=== PATIENT | female | born 1990 | race Caucasian/White ===

== ENCOUNTER 2025-06-29 04:30 | Inpatient (IN) ==
[2025-06-29 04:53] VITALS: BMI 28.3
[2025-06-29] MEDS ORDERED: AMPICILLIN VIAL 2 GRAM 2 G in NS 100 ML IV + SPIKE MINIBAG* 100 ML IV SCH (05:00)
[2025-06-29 05:03] LABS: MEAN PLATELET VOLUME 9.2 fL (7.4-11.0); RED CELL DISTRIBUTION WIDTH 18.6 % (11.6-16.5)
[2025-06-29 05:08] LABS: CREATININE 0.91 mg/dL (0.55-1.02); eGFR NON BLACK RACES > 60 (>60)
[2025-06-29] MEDS: AMPICILLIN VIAL 2 GRAM ONE (05:11)
[2025-06-29] MEDS: NS 100 ML IV 100 ML ONE (05:12)
[2025-06-29] MEDS: LR 1,000 ML IV 1,000 ML IV ONE (05:12)
[2025-06-29] MEDS ORDERED: NUBAIN INJ 10 MG AMP IVP PRN (05:14)
[2025-06-29] MEDS ORDERED: ZOFRAN INJ 4 MG VIAL IVP PRN (05:14)
[2025-06-29] MEDS ORDERED: REGLAN INJ 10 MG VIAL IVP PRN (05:14)
[2025-06-29] MEDS ORDERED: OXYTOCIN 20 UNIT/1,000 ML-NS 20 UNIT/1,000 ML PLAST..BAG IV PRN (05:14)
[2025-06-29] MEDS ORDERED: LR 1,000 ML IV 1,000 ML IV SCH (06:00)
[2025-06-29] MEDS ORDERED: PITOCIN ONE (06:02)
[2025-06-29] MEDS: PITOCIN IVP ONE (06:05)
[2025-06-29] MEDS: OXYTOCIN 20 UNIT/1,000 ML-NS 20 UNIT/1,000 ML PLAST..BAG IV SCH (06:05)
[2025-06-29] MEDS ORDERED: MOTRIN TAB 800 MG PO PRN (06:20)
[2025-06-29] MEDS ORDERED: MILK OF MAGNESIA PO PRN (07:20)
[2025-06-29] MEDS ORDERED: AMBIEN PO PRN (07:20)
[2025-06-29] MEDS: ADACEL or BOOSTRIX TDaP VACCINE IM ONE (09:47)
[2025-06-29] MEDS: PRENATAL PLUS PO SCH (09:59)
[2025-06-29] MEDS: DERMOPLAST PAIN RELIEF SPRAY TOP PRN (10:20)
[2025-06-30 00:45] VITALS: O2SAT 98
[2025-06-30 04:39] VITALS: TEMP 97.4
[2025-06-30 08:01] VITALS: BP 119/80; PULSE 100; RESP 19
[2025-06-30] MEDS: NS 100 ML IV 100 ML with VENOFER 400 MG IV ONE (09:26)
== END 2025-06-30 11:40 | disposition home or self-care (01) | DRG 807 ==
LOC: ER 04:30 → LD 04:53 → MED/SURG 07:13
PROVIDERS: ADMIT Obstetrics & Gynecology Obstetrics; ATTEND Obstetrics & Gynecology Obstetrics
DX: Z59.868 Other specified financial insecurity; Z3A.40 40 weeks gestation of pregnancy; O80 Encounter for full-term uncomplicated delivery; Z37.0 Single live birth